=== PATIENT | female | born 1995 | race Caucasian/White ===

== ENCOUNTER 2025-01-16 17:49 | Emergency (ER) | payer OTHER, SELFPAY ==
[2025-01-16 17:51] VITALS: BP 132/81
[2025-01-16 18:13] LABS: % Eosinophils 5.2 % (0-6); % Immature Granulocytes 0.1 % (0-0.5); % Lymphocytes 32.1 % (20.5-51.1); % Monocytes 6.7 % (1.7-9.3); % Neutrophils 54.9 % (42.2-75.2); Absolute Basophils 0.1 10^3/uL (0-0.2); Absolute Eosinophils 0.4 10^3/uL (0-0.7); Absolute Lymphocytes 2.7 10^3/uL (1.2-3.4); Absolute Monocytes 0.6 10^3/uL (0.1-0.6); Absolute Neutrophils 4.6 10^3/uL (1.4-6.5); Hematocrit 40.2 % (37.0-47.0); Hemoglobin 13.6 g/dL (12.0-16.0); Mean Corp Hgb Conc. 33.8 g/dL (33.0-37.0); Mean Corpuscular Hgb 30.2 pg (27.0-31.0); Mean Corpuscular Volume 89.3 fL (81.0-99.0); Mean Platelet Volume 9.7 fL (7.4-10.4); Nucleated Red Blood Cells % 0 %; Platelet Count 228 10^3/uL (130-400); Red Cell Dist. Width 11.9 % (11.5-14.5); White Blood Cell Count 8.3 10^3/uL (4.8-10.8)
[2025-01-16 18:39] LABS: ALT (SGPT) 18 U/L (0-35); AST (SGOT) 23 U/L (14-36); Albumin 4.8 g/dl (3.5-5.0); Alkaline Phosphatase 51 U/L (38-126); Blood Urea Nitrogen 17 mg/dl (7-17); Calcium 9.5 mg/dl (8.4-10.2); Carbon Dioxide 26 mmol/L (22-30); Chloride 103 mmol/L (98-107); Glucose 132 mg/dl (70-99); HCG, Serum Qualitative Screen Negative; Sodium 138 mmol/L (135-145); Total Bilirubin 0.4 mg/dl (0.2-1.3); Total Protein 7.8 g/dl (6.3-8.2); eGFR > 60.00
[2025-01-16 18:40] LABS: Troponin I < 0.012 ng/ml
[2025-01-16 20:40] VITALS: BP 109/94
[2025-01-16 20:47] LABS: D-Dimer < 0.27 ug/mlFEU (0.00-0.50)
--- NOTE | 2025-01-16 20:55 | ED.GENMED ---
History of Present Illness
General
Chief Complaint: Heart Rate Problem
Time Seen by Provider: 01/16/25 18:44
History of Present Illness
History of Present Illness:
29-year-old female presents the emergency department for evaluation of frequent heart palpitations ongoing for the past month. She states when the symptoms are ongoing she has difficulty catching her breath. Went to urgent care today and was
advised to come to the emergency department due to elevated heart rate. She denies any chest pain associated with the symptoms. No recent fever, chills, sweats, leg swelling, or calf cramping. No recent illnesses. Does not take any exogenous
estrogen.
Past History
Past History
ED Past Medical History: Psychiatric (anxiety)
ED Past Surgical History: None
Social History
Drug: None
Personal: Single
Living: with family
Family History
Family History: Other (no significant)
Review of Systems
Review of Systems
Allergies reviewed?: Yes
All Other Systems: ROS reviewed and negative except as documented in HPI and ROS
Phy Exam
Physical Exam
Physical Exam:
GEN: Well appearing, NAD, WDWN
HEENT: Oral mucosa moist, no scleral icterus
Cardiac: Tachycardic, regular
Lung: No respiratory distress, no tachypnea, lungs clear to auscultation bilaterally
MSK: No gross deformity or injuries
Skin: Good color, no pallor or jaundice, no rashes
Neuro: AO x3, moves all extremities freely
Psych: Calm, cooperative
Course
Orders/Labs/Results
Orders:
Orders
01/16/25 17:56
Electrocardiogram (*1) Urgent
Reason for Study: Chest Pain
EKG- Treatment ONCE
Test Result ONCE
01/16/25 18:06
Complete Blood Count/With Diff Urgent
Comprehensive Metabolic Panel Urgent
HCG, Serum Qualitative Screen Urgent
Comment: Notify provider if positive test present
TSH Reflex To Free T4 Urgent
Troponin I Urgent
01/16/25 19:54
D-Dimer Urgent
Abnormal Lab Results
01/16/25
18:06
Glucose 132 H mg/dl
(70-99)
01/16/25 18:06
01/16/25 18:06
Vital Signs
Initial and Last Documented VS:
Initial Vital Signs
Temp Pulse Resp BP Pulse Ox
98.7 F 127 16 132/81 100
01/16/25 17:51 01/16/25 17:51 01/16/25 17:51 01/16/25 17:51 01/16/25 17:51
Last Documented Vital Signs
Temp Pulse Resp BP Pulse Ox
98.7 F 87 18 109/94 97
01/16/25 17:51 01/16/25 20:40 01/16/25 20:40 01/16/25 20:40 01/16/25 19:56
MDM/Problems Addressed
MDM/Problems Addressed:
EKG shows sinus tachycardia. Her rates did wax and wane with the presence of nursing staff or myself in the room likely indicating anxiety., Her workup is reassuring particular negative D-dimer. Recommend outpatient primary care or cardiology
follow-up to discuss benefits of potential Holter monitor
*Critical Care Note
Total Time (30-74mins, 75-104mins- exclusive of procedures): Not Applicable
ED Attending Note
-
Portions of this chart may have been created with voice recognition software.� Occasional wrong word or��sound alike� substitutions may have occurred due to the inherent limitations of voice recognition software.
Discharge Plan
Departure
Patient Disposition: Home (Routine Discharge)
Date of Disposition: 01/16/25
Time of Disposition: 20:55
Patient with high blood pressure during this ER visit?: No
Discharge Problem:
Heart palpitations, Anxiety
Instructions: Palpitations (DC)
Prescriptions:
No Action
Unobtainable
0
Referrals:
Parker Hung MD [Family Provider] -
Activity Restrictions/Additional Instructions:
I suspect the symptoms are provoked by anxiety however it would be reasonable to follow-up with a minister helper to schedule a wearable at home monitoring specialist (Holter monitor) to rule out any other cardiac issues
Interventions
Interventions:
*Risk Screen - Suicide Last Done: 01/16/25 17:51
*Neglect/Abuse Screening Last Done: 01/16/25 17:51
*ED COVID-19 Vaccine History Last Done: 01/16/25 19:56
*Nursing Disposition Last Done: 01/16/25 21:03
ED- Cardiac Assessment Last Done: 01/16/25 19:56
ED- Pulmonary Assessment Last Done: 01/16/25 19:56
Discharge Date and Time
Discharge Date/Time: 01/16/25 21:04
Print Language: ESTONIAN
== END 2025-01-16 21:04 | disposition home or self-care (01) ==
LOC: EMR 17:49
PROVIDERS: Emergency Medicine; Physician Assistant; EMERGENCY PHYSICIAN Emergency Medicine; FAMILY PHYSICIAN Family Medicine
DX: R00.2 Palpitations (principal); R00.0 Tachycardia, unspecified; F41.9 Anxiety disorder, unspecified
CPT/HCPCS: 99284; 80053; 84443; 84484; 84703; 85025; 85379; 93005

== ENCOUNTER 2025-05-20 16:57 | Emergency (ER) | payer OTHER, SELFPAY ==
[2025-05-20 16:57] VITALS: BMI 25.2
[2025-05-20 17:04] VITALS: BP 112/72
[2025-05-20 17:18] LABS: Urine Albumin Negative (Neg - Trace); Urine Bilirubin Negative (Negative); Urine Character Clear (Clear); Urine Color Yellow; Urine Glucose Negative (Negative); Urine Ketone Negative (Negative); Urine Leukocyte 1+ (Negative); Urine Nitrite Negative (Negative); Urine Occult Blood 1+ (Negative); Urine Urobilinogen Negative (Neg - 1+)
[2025-05-20 17:22] LABS: HCG, Urine Qualitative Screen Negative
[2025-05-20 17:25] LABS: Urine Squamous Cell 16-20 /LPF (Few)
[2025-05-20 17:26] LABS: Urine Bacteria Few (Negative); Urine Red Blood Cell 0-2 /HPF (0-2)
--- NOTE | 2025-05-20 17:51 | ED.GENMED ---
History of Present Illness
General
Chief Complaint: Abdominal Pain
Time Seen by Provider: 05/20/25 17:32
History of Present Illness
History of Present Illness:
Patient is a 29-year-old woman with history of IBS, interstitial cystitis. To the emergency department with abdominal pain and back pain. Patient says for the past few days she has been having abdominal pain to the right upper quadrant after
eating. She has had decreased appetite secondary to it. Mild nausea. No vomiting. Some bloating. She has been having some burning sensation in her epigastric region. No recent NSAID use. No alcohol. She does state that she went to her
primary care doctor few days ago and they diagnosed her with peptic ulcer disease and started her on omeprazole. She also been feeling a soreness in her upper and lower back. Feels as if she has worked out. Denies any urinary symptoms. No
numbness tingling no saddle anesthesia. No fevers or chills. No chest pain. No shortness of breath
Past History
Past History
ED Past Medical History: Psychiatric (anxiety)
ED Past Surgical History: None
Social History
Drug: None
Personal: Single
Living: with family
Family History
Family History: Other (no significant)
Phy Exam
Physical Exam
Physical Exam:
GENERAL: in no acute distress
HEENT: normocephalic, extraocular movements intact, moist oral mucosa
NECK: normal inspection insert
Back: No midline spinal tenderness, diffuse tenderness to palpation to upper and lower back
RESPIRATORY: no respiratory distress, clear to auscultation bilaterally
CARDIOVASCULAR: regular rate and rhythm
ABDOMEN/: soft, non-distended, non-tender to palpation, no rebound or guarding
EXTREMITIES: non-tender, no edema/swelling
NEUROLOGIC: awake and alert, moves all extremities
SKIN: warm
Course
Orders/Labs/Results
Orders:
Orders
05/20/25 17:07
Test Result ONCE
05/20/25 17:10
HCG, Urine Qualitative Screen Urgent
Date Specimen was Collected: 05/20/25
Time Specimen was Collected: 17:07
Urinalysis Reflex To Culture Urgent
Date Specimen was Collected: 05/20/25
Time Specimen was Collected: 17:07
Urine Microscopic Reflex Cult Urgent
Urine Culture Urgent
GARY Source: U
Specimen Description:
Date Specimen was Collected: 05/20/25
Time Specimen was Collected: 17:07
05/20/25 17:49
Acetaminophen [Tylenol] 1,000 mg PO NOW STA
Famotidine [Pepcid] 40 mg PO NOW STA
US Abdomen Complete/Upper Urgent
Comment:
Reason For Exam: RUQ pain
05/20/25 18:02
Complete Blood Count/With Diff Urgent
Comprehensive Metabolic Panel Urgent
Lipase Urgent
Abnormal Lab Results
05/20/25
17:10
Ur Occult Blood Reflex 1+ A
(Negative)
Leukocyte Esterase Rfl 1+ A
(Negative)
Urine WBC (Reflex) 11-15 A /HPF
(0-5)
Urine Bacteria (Reflex) Few A
(Negative)
05/20/25 18:02
05/20/25 18:02
Vital Signs
Initial and Last Documented VS:
Initial Vital Signs
Temp Pulse Resp BP Pulse Ox
97.6 F 90 16 112/72 100
05/20/25 17:04 05/20/25 17:04 05/20/25 17:04 05/20/25 17:04 05/20/25 17:04
Last Documented Vital Signs
Temp Pulse Resp BP Pulse Ox
97.6 F 104 18 130/85 98
05/20/25 17:04 05/20/25 19:20 05/20/25 19:20 05/20/25 19:20 05/20/25 19:20
MDM/Problems Addressed
Differential Diagnosis Includes:
Patient is a 29-year-old woman with history of IBS, interstitial cystitis presenting to the emergency department with abdominal pain after eating as well as back pain. On arrival vitals unremarkable and exam is reassuring. Back pain is likely
musculoskeletal in etiology. As it is reproducible. No CVA tenderness to suggest kidney infection. No rash. No midline tenderness to suggest vertebral fracture. Regarding patient's abdominal pain could be biliary colic versus pancreatitis
versus peptic ulcer disease. Will check blood work ultrasound. Will give Pepcid.
*Pulse Oximetry
SaO2: 100
Oxygen Mode of Delivery: Room air
Patient hypoxic: no (98)
*Critical Care Note
Total Time (30-74mins, 75-104mins- exclusive of procedures): Not Applicable
Update Note
Update Note:
Lab work reassuring. Ultrasound with gallbladder sludge. On reevaluation patient's pain has improved. She is tolerating p.o. Will discharge with outpatient surgical follow-up. She does state that she does have family history of females in her
family requiring gallbladder removal in their 20s.
ED Attending Note
-
Portions of this chart may have been created with voice recognition software.� Occasional wrong word or��sound alike� substitutions may have occurred due to the inherent limitations of voice recognition software.
Discharge Plan
Departure
Patient Disposition: Home (Routine Discharge)
Date of Disposition: 05/20/25
Time of Disposition: 21:41
Patient with high blood pressure during this ER visit?: No
Discharge Problem:
Gallbladder sludge
Instructions: Gallstones - ED discharge instructions
Prescriptions:
No Action
Unobtainable
0
Referrals:
Parker Hung MD [Family Provider, Family Practice]
Juan M Clarke MD [Active, Surgical]
Activity Restrictions/Additional Instructions:
You were seen in the Emergency Department today for belly pain after eating. While you were here we performed blood work, which was reassuring. Please make sure you follow-up with the surgeon as discussed. Please follow a nonfat diet in the
interim.
We would like for you to follow up with your primary care physician for further evaluation. If you experience fever, worsening of your symptoms, or develop any other new or concerning symptoms, please return to the Emergency Department immediately.
Please see the attached sheet for additional information.
Interventions
Interventions:
*Risk Screen - Suicide Last Done: 05/20/25 17:04
*General Assessment Last Done: 05/20/25 17:04
*Neglect/Abuse Screening Last Done: 05/20/25 17:04
*ED- Fall Risk Assessment Last Done: 05/20/25 19:39
*ED COVID-19 Vaccine History Last Done: 05/20/25 19:39
NA-Myzpcc-Ipulcdvgzi Assessment Last Done: 05/20/25 19:22
Discharge Date and Time
Print Language: ICELANDIC
[2025-05-20 18:07] LABS: % Basophils 0.9 % (0-2); % Eosinophils 4.6 % (0-6); % Immature Granulocytes 0.3 % (0-0.5); % Lymphocytes 37.3 % (20.5-51.1); % Monocytes 6.5 % (1.7-9.3); % Neutrophils 50.4 % (42.2-75.2); Absolute Basophils 0.1 10^3/uL (0-0.2); Absolute Eosinophils 0.3 10^3/uL (0-0.7); Absolute Lymphocytes 2.8 10^3/uL (1.2-3.4); Absolute Monocytes 0.5 10^3/uL (0.1-0.6); Absolute Neutrophils 3.7 10^3/uL (1.4-6.5); Hematocrit 40.5 % (37.0-47.0); Hemoglobin 13.8 g/dL (12.0-16.0); Mean Corp Hgb Conc. 34.1 g/dL (33.0-37.0); Mean Corpuscular Hgb 30.8 pg (27.0-31.0); Mean Corpuscular Volume 90.4 fL (81.0-99.0); Nucleated Red Blood Cells % 0 %; Platelet Count 214 10^3/uL (130-400); Red Blood Cell Count 4.48 10^6/uL (4.20-5.40); White Blood Cell Count 7.4 10^3/uL (4.8-10.8)
[2025-05-20 18:26] LABS: ALT (SGPT) 33 U/L (0-35); AST (SGOT) 32 U/L (14-36); Alkaline Phosphatase 51 U/L (38-126); Blood Urea Nitrogen 14 mg/dl (7-17); Calcium 9.7 mg/dl (8.4-10.2); Carbon Dioxide 28 mmol/L (22-30); Chloride 106 mmol/L (98-107); Glucose 90 mg/dl (70-99); Lipase 74 U/L (23-300); Potassium 4.3 mmol/L (3.5-5.1); Sodium 142 mmol/L (135-145); Total Bilirubin 0.7 mg/dl (0.2-1.3); Total Protein 7.9 g/dl (6.3-8.2); eGFR > 60.00
[2025-05-20] MEDS: TYLENOL 1000 MG PO (19:17)
[2025-05-20] MEDS: PEPCID 40 MG PO (19:17)
[2025-05-20 19:20] VITALS: BP 130/85
== END 2025-05-20 22:03 | disposition home or self-care (01) ==
LOC: EMR 16:57
PROVIDERS: Emergency Medicine; EMERGENCY PHYSICIAN Student in an Organized Health Care Education/Training Program; FAMILY PHYSICIAN Family Medicine
DX: K82.8 Other specified diseases of gallbladder (principal); K58.9 Irritable bowel syndrome, unspecified
CPT/HCPCS: 99284; 76700; 80053; 81003; 81015; 81025; 83690; 85025; 87086

== ENCOUNTER 2025-06-18 06:19 | Day surgery (SDC) | payer OTHER, SELFPAY ==
[2025-06-18] VITALS (9 sets, daily range): BP systolic 101–121; BP diastolic 55–78; BMI 23.9
[2025-06-18] MEDS: NORMOSOL-R/PLASMALYTE-A 1000 IV (10:56)
[2025-06-18] MEDS: TYLENOL 1000 MG PO (10:56)
[2025-06-18] MEDS: TRANSDERM-SCOP 1 PATCH TRANSDERM (11:08)
[2025-06-18] MEDS: ZOFRAN 4 MG IV (12:36)
[2025-06-18] MEDS: DILAUDID 0.5 MG IV (12:47)
== END 2025-06-18 14:00 | disposition home or self-care (01) ==
LOC: SDS 06:19
PROVIDERS: ATTENDING PHYSICIAN Surgery
DX: K81.1 Chronic cholecystitis (principal); K82.8 Other specified diseases of gallbladder
CPT/HCPCS: 47563; 74300; 76000; 88304; A4300